=== PATIENT | male | born 1940 | race Caucasian/White ===

== ENCOUNTER 2019-12-04 14:50 | Emergency (ER) | payer MEDICARE, OTHER ==
[~2019-12-04] VITALS: Ht 172.7 cm; Wt 72.6 kg
[~2019-12-04 14:50] MED LIST: AMOXICILLIN875 MG PO; ASPIRIN EC81 MG PO; CARVEDILOL3.125 MG PO; CENTRUM SILVER1 EAC1 PO; COZAAR25 MG PO; DILANTIN100 MG PO; NIASPAN500 MG PO; NORCO 5-325 TA1 EACH PO; VITAMIN C500 M1 PO
[2019-12-04] MEDS ORDERED: DOXYCYCLINE MO100 MG PO (15:02)
== END 2019-12-04 18:13 | disposition home or self-care (01) ==
LOC: ED 14:50
DX: R04.0 Epistaxis (principal); I10 Essential (primary) hypertension; E78.00 Pure hypercholesterolemia, unspecified; Z88.8 Allergy status to other drugs, medicaments and biological substances; Z79.899 Other long term (current) drug therapy; Z79.82 Long term (current) use of aspirin
CPT/HCPCS: 30903; 85025; 99283-25; J7040